=== PATIENT | female | born 1970 | race Two or more races ===

== ENCOUNTER 2022-05-09 20:34 | Emergency (ER) | payer MEDICARE, MEDICAID, OTHER ==
[~2022-05-09] VITALS: Ht 165.1 cm; Wt 109.0 kg
[2022-05-09 23:55] VITALS: BP 143/102
== END 2022-05-10 04:56 | disposition left against medical advice (07) ==
LOC: ER 20:34
DX: M79.671 Pain in right foot (principal); Z53.21 Procedure and treatment not carried out due to patient leaving prior to being seen by health care provider; V43.62XA Car passenger injured in collision with other type car in traffic accident, initial encounter; Y93.89 Activity, other specified; Y92.89 Other specified places as the place of occurrence of the external cause; Y99.8 Other external cause status